=== PATIENT | female | born 1955 | race Caucasian/White ===

== ENCOUNTER 2018-12-14 08:39 | Emergency (ER) | payer OTHER ==
--- NOTE | 2018-12-14 09:14 | ED ---
Neurological HPI - HPI Summary HPI Summary: A 63 y/o female presents to [facility] with a chief complaint of a possible seizure on 12/10/18. She claims that she was at the dentist when she felt like she was about to pass out. She felt dizzy and nauseous and then she is unsure how much time passed but she next remembers the dentist saying that her eyes were open but she was unresponsive. The dentist believes that she possibly had a seizure. EMS was notified and she signed the required paperwork to not come to the ED since she didnt want to come in. However since EMS recommended that she see her PCP, she came into the ED today because she does not have a PCP. She denies any pain, rating her pain as a 0/10 in severity. - History of Current Complaint Chief Complaint: EDSeizure Stated Complaint: POSS SEISURE PER PT Time Seen by Provider: 12/14/18 09:01 Hx Obtained From: Patient Onset/Duration: Sudden Onset, Started days ago, Resolved Timing: Intermittent Episodes Lasting: - unknown Onset Severity: Mild Current Severity: None Number of Seizures: 1 - according to dentist Pain Intensity: 0 Pain Scale Used: 0-10 Numeric Character: Unable To Describe Syncope Timin12/10/18 Episode Lasting: Unknown Number of Episodes: 1 Syncope Context: Witnessed, Loss of Consciousness: Yes Frequency: Episodes x___ - 1, Episodes Lasting ____ (in Mins/Days/Weeks/Years) - unknown Aggravating: Nothing Alleviating: Nothing Associated Signs and Symptoms: Positive: Dizziness - TEACHING ASSISTANT, Nausea/Vomiting - nausea TEACHING ASSISTANT. Negative: Fever - Allergy/Home Medications Allergies/Adverse Reactions: Allergies Allergy/AdvReac Type Severity Reaction Status Date / Time No Known Allergies Allergy Verified 12/14/18 08:49 Home Medications: Home Medications NK [No Home Medications Reported] 12/14/18 [History Confirmed 12/14/18] PMH/Surg Hx/FS Hx/Imm Hx Cardiovascular History: Reports: Hx Syncope Sensory History: Denies: Hx Deafness EENT History: Denies: Hx Deafness Infectious Disease History: No Infectious Disease History: Denies: Traveled Outside the [place] in Last 30 Days - Family History Known Family History: Negative: Blood Disorder - Social History Alcohol Use: Rare Substance Use Type: Reports: None Smoking Status (MU): Never Smoked Tobacco Review of Systems Negative: Fever Positive: Nausea - Prior to seizure-like activity Neurological: Other - positive: seizure-like activity, dizziness All Other Systems Reviewed And Are Negative: Yes Physical Exam - Summary Physical Exam Summary: Appearance: The patient is well-nourished in no acute distress and in no acute pain. Skin: The skin is warm and dry and skin color reflects adequate perfusion. HEENT: The head is normocephalic and atraumatic. The pupils are equal and reactive. The conjunctivae are clear and without drainage. Nares are patent and without drainage. Mouth reveals moist mucous membranes and the throat is without erythema and exudate. The external ears are intact. The ear canals are patent and without drainage. The tympanic membranes are intact. Neck: The neck is supple with full range of motion and non-tender. There are no carotid bruits. There is no neck vein distension. Respiratory: Chest is non-tender. Lungs are clear to auscultation and breath sounds are symmetrical and equal. Cardiovascular: Heart is regular rate and rhythm. There is no murmur or rub auscultated. There is no peripheral edema and pulses are symmetrical and equal. Abdomen: The abdomen is soft and non-tender. There are normal bowel sounds heard in all four quadrants and there is no organomegaly palpated. Musculoskeletal: There is no back tenderness noted. Extremities are non-tender with full range of motion. There is good capillary refill. There is no peripheral edema or calf tenderness elicited. Neurological: Patient is alert and oriented to person, place and time. The patient has symmetrical motor strength in all four extremities. Cranial nerves are grossly intact. Deep tendon reflexes are symmetrical and equal in all four extremities. Psychiatric: The patient has an appropriate affect and does not exhibit any anxiety or depression. Triage Information Reviewed: Yes Vital Signs On Initial Exam: Initial Vitals Temp Pulse Resp BP Pulse Ox 98.3 F 86 18 160/113 99 12/14/18 08:40 12/14/18 08:40 12/14/18 08:40 12/14/18 08:40 12/14/18 08:40 Vital Signs Reviewed: Yes Diagnostics - Vital Signs Vital Signs Temp Pulse Resp BP Pulse Ox 12/14/18 08:40 98.3 F 86 18 160/113 99 - Laboratory Result Diagrams: 12/14/18 09:26 12/14/18 09:26 Lab Statement: Any lab studies that have been ordered have been reviewed, and results considered in the medical decision making process. - EKG 09:22 Cardiac Rate: Bradycardia - 58 bpm EKG Rhythm: Sinus Rhythm Summary of EKG Findings: Sinus bradycardia at 58 bpm, normal ST, no ectopy, no STEMI. Re-Evaluation - Re-Evaluation First Eval Re-Evaluation Time: 11:10 Change: Improved Comment: Discussed results. Patient is ready for discharge. Course/Dx - Course Course Of Treatment: I think it is more likely that Ms. Doran had a vasovagal syncopal episode with seizure-like activity at the dentist 2 days ago. She was monitored here while labs were obtained. Everything was fine and she was nontoxic in appearance with stable vital signs. She has no PCP and I recommended [facility] to her. - Diagnoses Provider Diagnoses: Vasovagal syncope Discharge - Sign-Out/Discharge Documenting (check all that apply): Patient Departure - DC Patient Received Moderate/Deep Sedation with Procedure: No - Discharge Plan Condition: Stable Disposition: HOME Patient Education Materials: Syncope (DC) Referrals: [facility] [Outside] (2-3 days) Additional Instructions: Return to the ED if you experience any new or worsening symptoms. - Billing Disposition and Condition Condition: STABLE Disposition: Home - Attestation Statements Document Initiated by Franklin: Yes Documenting Scribe: Ezra Neves Provider For Whom Franklin is Documenting (Include Credential): Gilson Nick MD Scribe Attestation: IEzra, scribed for Gilson Nick MD on 12/14/18 at 1610. Scribe Documentation Reviewed: Yes Provider Attestation: The documentation as recorded by the Ezra calvin accurately reflects the service I personally performed and the decisions made by me, Gilson Nick MD Status of Scribe Document: Viewed
[2018-12-14 09:43] LABS: ABS Basophils 0 10^3/ul (0-0.2); ABS Eosinophils 0 10^3/ul (0-0.6); ABS Lymphocytes 0.9 10^3/ul (1.0-4.8); ABS Monocytes 0.3 10^3/ul (0-0.8); ABS Neutrophils 3.7 10^3/ul (1.5-7.7); ABS Nucleated RBC 0 10^3/ul; Eosinophil % 0 %; Hematocrit 41 % (33-41); Hemoglobin 13.7 g/dL (12.0-16.0); Lymphocyte % 18.7 %; Mean Corpuscular HGB Conc 33 g/dL (31-36); Mean Corpuscular Hemoglobin 30 pg (27-31); Mean Corpuscular Volume 90 fL (80-97); Mean Platelet Volume 7.9 fL (7.4-10.4); Nucleated Red Blood Cells % 0; Platelet Count 249 10^3/uL (150-450); Red Cell Distribution Width 13 % (10.5-15); White Blood Count 4.9 10^3/uL (3.5-10.8)
[2018-12-14 10:01] LABS: Troponin I 0.02 ng/mL (<0.04)
[2018-12-14 10:05] LABS: Albumin 4.4 g/dL (3.2-5.2); Albumin/Globulin Ratio 1.5 (1-3); BUN/Creatinine Ratio 16.2 (8-20); Calcium 9.6 mg/dL (8.6-10.3); EGFR African American 105.4 (>60); EGFR Non-African American 87.1 (>60); Globulin 2.9 g/dL (2-4); Magnesium 2.1 mg/dL (1.9-2.7); Potassium 3.6 mmol/L (3.5-5.0); Total Bilirubin 0.6 mg/dL (0.2-1.0); Total Protein 7.3 g/dL (6.4-8.9)
[2018-12-14 10:35] LABS: TSH (Thyroid Stimulating Horm) 4.38 mcIU/mL (0.34-5.60)
[2018-12-14 11:20] VITALS: BP 143/91
== END 2018-12-14 11:20 | disposition home or self-care (01) ==
LOC: ED 08:39
DX: R55 Syncope and collapse (principal); R00.0 Tachycardia, unspecified
CPT/HCPCS: 36415; 80053; 83605; 83735; 84443; 84484; 85025; 93005; 99282